=== PATIENT | male | born 1935 | race Caucasian/White ===

== ENCOUNTER 2018-01-19 10:31 | Outpatient (CLI) | payer OTHER ==
[~2018-01-19] VITALS: Ht 167.6 cm; Wt 72.6 kg
[~2018-01-19 10:31] MED LIST: CARAFATE SU1 G/10 ML PO; DOLOGEN CAPLET1 EACH PO; MEDROL4 MG PO; PROTONIX40 MG PO
[2018-01-19] MEDS ORDERED: CEFUROXIME500 MG PO (12:07)
[2018-01-19] MEDS ORDERED: FLONASE16 GM NASAL (12:07)
[2018-01-19] MEDS ORDERED: ZANTAC300 MG PO (12:07)
== END 2018-01-19 14:49 | disposition home or self-care (01) ==
LOC: OFIC 805 10:31
DX: J34.2 Deviated nasal septum (principal); J37.0 Chronic laryngitis; J31.0 Chronic rhinitis; J33.8 Other polyp of sinus; J32.8 Other chronic sinusitis

== ENCOUNTER → 2018-02-01 | Outpatient (CLI) | payer OTHER ==
[~2018-02-01] MED LIST changes: +CEFUROXIME500 MG PO; +FLONASE16 GM NASAL; +ZANTAC300 MG PO
== END | disposition home or self-care (01) ==
LOC: TOM 09:21
DX: J32.9 Chronic sinusitis, unspecified (principal)

== ENCOUNTER → 2020-06-04 12:49 | Outpatient (CLI) | payer OTHER | END | disposition home or self-care (01) | LOC: LAB 12:49 | PROVIDERS: ATTEND Internal Medicine Geriatric Medicine | DX: Z20.828 Contact with and (suspected) exposure to other viral communicable diseases (principal); Z03.818 Encounter for observation for suspected exposure to other biological agents ruled out; Z11.59 Encounter for screening for other viral diseases ==

== ENCOUNTER 2020-07-18 10:33 | Emergency (ER) | payer OTHER ==
[~2020-07-18] VITALS: Ht 162.6 cm; Wt 69.9 kg
[2020-07-18] MEDS ORDERED: SYNTHROID50 MCG PO (10:55)
[2020-07-18] MEDS ORDERED: XARELTO15 MG PO (10:56)
[2020-07-18] MEDS ORDERED: METOPROLOL SUC100 MG PO (10:56)
[2020-07-18] MEDS ORDERED: TAMSULOSIN HCL0.4 MG PO (10:57)
[2020-07-18] MEDS ORDERED: TYLENOL ARTHRI650 MG PO (14:04)
[2020-07-18] MEDS ORDERED: AZITHROMYCIN250 MG PO (14:04)
== END 2020-07-18 12:48 | disposition home or self-care (01) ==
LOC: ER 10:33
DX: J01.80 Other acute sinusitis (principal); B34.9 Viral infection, unspecified; R53.81 Other malaise; Z03.818 Encounter for observation for suspected exposure to other biological agents ruled out

== ENCOUNTER 2020-12-28 13:00 | Emergency (ER) | payer OTHER ==
[~2020-12-28] VITALS: Ht 160 cm; Wt 70.3 kg
[~2020-12-28 13:00] MED LIST changes: +AZITHROMYCIN250 MG PO; +METOPROLOL SUC100 MG PO; +SYNTHROID50 MCG PO; +TAMSULOSIN HCL0.4 MG PO; +TYLENOL ARTHRI650 MG PO; +XARELTO15 MG PO
== END 2020-12-28 19:32 | disposition home or self-care (01) ==
LOC: ER 13:00
DX: N39.0 Urinary tract infection, site not specified (principal); R31.0 Gross hematuria

== ENCOUNTER 2021-01-05 12:47 | Emergency (ER) | payer OTHER ==
[~2021-01-05] VITALS: Ht 162.6 cm; Wt 70.3 kg
[2021-01-05] MEDS ORDERED: TAMS0.4C (13:06)
== END 2021-01-05 21:14 | disposition home or self-care (01) ==
LOC: ER 12:47
DX: N30.81 Other cystitis with hematuria (principal); R31.0 Gross hematuria; Z20.822 Contact with and (suspected) exposure to COVID-19

== ENCOUNTER 2021-03-11 11:18 | Day surgery (SDC) | payer OTHER ==
[~2021-03-11 11:18] MED LIST changes: +TAMS0.4C
[2021-03-11] MEDS ORDERED: ULTRAM50 MG PO (17:21)
[2021-03-11] MEDS ORDERED: CEPHALEXIN500 MG PO (17:22)
[2021-03-11] MEDS ORDERED: PYRIDIUM200 MG PO (17:22)
== END 2021-03-11 20:20 | disposition home or self-care (01) ==
LOC: CIR.AMB 11:18
PROVIDERS: ATTEND Surgery
DX: C67.2 Malignant neoplasm of lateral wall of bladder (principal); C67.3 Malignant neoplasm of anterior wall of bladder; Z20.822 Contact with and (suspected) exposure to COVID-19

== ENCOUNTER 2021-07-29 08:10 | Day surgery (SDC) | payer OTHER ==
[~2021-07-29 08:10] MED LIST changes: +CEPHALEXIN500 MG PO; +LEVOTHYROXINE25 MCG PO; +PYRIDIUM200 MG PO; +ULTRAM50 MG PO
== END 2021-07-29 18:00 | disposition home or self-care (01) ==
LOC: U 08:10 → CIR.AMB 08:10
PROVIDERS: ATTEND Surgery
DX: C67.8 Malignant neoplasm of overlapping sites of bladder (principal); Z20.822 Contact with and (suspected) exposure to COVID-19

== ENCOUNTER 2021-08-05 05:34 | Day surgery (SDC) | payer OTHER ==
[2021-08-05] MEDS ORDERED: CEPHALEXIN500 MG PO (08:48)
[2021-08-05] MEDS ORDERED: MELOXICAM7.5 MG PO (08:49)
== END 2021-08-05 13:00 | disposition home or self-care (01) ==
LOC: CIR.AMB 05:34
PROVIDERS: ATTEND Surgery
DX: C67.8 Malignant neoplasm of overlapping sites of bladder (principal); Z20.822 Contact with and (suspected) exposure to COVID-19

== ENCOUNTER 2021-12-18 10:52 | Outpatient (CLI) | payer OTHER ==
[~2021-12-18 10:52] MED LIST changes: +MELOXICAM7.5 MG PO
== END 2021-12-18 11:00 | disposition home or self-care (01) ==
LOC: LAB 10:52
PROVIDERS: ATTEND Radiology Diagnostic Radiology
DX: C67.9 Malignant neoplasm of bladder, unspecified (principal)

== ENCOUNTER 2021-12-19 10:39 | Outpatient (CLI) | payer OTHER | END 2021-12-19 10:49 | disposition home or self-care (01) | LOC: TOM 10:39 | PROVIDERS: ATTEND Surgery | DX: C67.9 Malignant neoplasm of bladder, unspecified (principal) | CPT/HCPCS: 71260; 74177; A9579 ×2 ==

== ENCOUNTER 2022-06-10 12:16 | Outpatient (CLI) | payer OTHER | END 2022-06-10 12:17 | disposition home or self-care (01) | LOC: LAB 12:16 | PROVIDERS: ATTEND Urology | DX: N30.00 Acute cystitis without hematuria (principal) ==